=== PATIENT | male | born 1960 ===

== ENCOUNTER → 2017-10-25 | Outpatient (CLI) | payer OTHER, BC ==
[~2017-10-25] MED LIST: CYCL-277 PO; IBUP800T37 PO
--- NOTE | 2017-10-25 10:22 | RADIOLOGY IMAGING REPORT ---
FACILITY: [facility] - [place] PATIENT NAME: James Yanes : 1960 MR: [id number] V: [id number] EXAM DATE: ORDERING PHYSICIAN: CHARY BAILEY TECHNOLOGIST: Location: [facility] [place] Patient: James Yanes : 1960 Visit/Account:[id number] Date of Sevice: 10/25/2017 Study: ORBITS FOREIGN BODY 1 VIEW Indication: MRI screening Comparison study: None Findings: A single view of the orbits demonstrates no evidence of metallic foreign body. No significant bony abnormality is identified. IMPRESSION: No evidence of metallic foreign body overlying the orbits. Report Dictated By: Alonso Mathur at 10/25/2017 10:17 AM Report E-Signed By: Alonso Mathur at 10/25/2017 10:18 AM WSN:[id number]
--- NOTE | 2017-10-25 12:02 | RADIOLOGY IMAGING REPORT ---
[place] [facility] [place]: James Yanes : 1960 MR: [id number] V: [id number] EXAM DATE: ORDERING PHYSICIAN: CHARY BAILEY TECHNOLOGIST: Location: [facility] Patient: James Yanes : 1960 Visit/Account:[id number] Date of Sevice: 10/25/2017 L SPINE W/O CONTRAST EXAMINATION: Lumbar spine MRI without IV contrast Additional Pertinent history: Left leg pain COMPARISON STUDIES: none TECHNIQUE: Multi-planar, multi-sequence lumbar spine MRI was performed without intravenous contrast administration. FINDINGS: Alignment: negative Vertebral marrow signal: negative Distal thoracic cord: negative Conus: negative, terminates at T12 Cauda equina: negative Paravertebral soft tissues: negative Visualized abdominal and pelvic structures: negative Disc Spaces: Lower T spine: negative L1-2: negative L2-3: Mild facet DJD changes. L3-4: Small central disc bulging change. In conjunction with facet hypertrophy and thickening of liga mentum flavum this is resulting in a mild central stenosis. The transiting and exiting nerve roots we ll maintained L4-5: Central disc bulging change mild to moderate degree within minimal annular tear. In conjunction with facet hypertrophy and thickening of ligament flavum is resulting in a mild to moderate spinal s tenosis centrally. The very far lateralizing disc osteophyte complexes resulting in moderate impinge ment upon the very far lateral exiting right L IV nerve root (axial image 18/25 T2) L5-S1: Moderate central and left lateralizing disc bulging change with left lateral disc extrusion re sulting in moderately severe impingement of the transiting left S1 nerve root (axial image 24) exitin g nerve roots well maintained IMPRESSION: 1. Disc degenerative changes in the lower 3 lumbar levels as described. There is a central and left L 5-S1 lateralizing disc bulge/extrusion resulting in moderate impingement of the transiting left S1 ne rve root. There is also a very far lateralizing disc disc bulge/osteophyte change on the right at the L4-5 level level resulting in mild/moderate impingement of the very far lateralizing exiting right L 4 nerve root. 2. Mild L3-4 and L 4-5 spinal stenotic changes. Report Dictated By: Eder Dai MD at 10/25/2017 11:47 AM Report E-Signed By: Eder Dai MD at 10/25/2017 11:57 AM WSN:[id number]
== END ==
LOC: MRI 08:07
PROVIDERS: ATTEND Nurse Practitioner Family
DX: M51.36 Other intervertebral disc degeneration, lumbar region (principal); M51.27 Other intervertebral disc displacement, lumbosacral region
CPT/HCPCS: 70030; 72148

== ENCOUNTER → 2017-11-26 | Outpatient (REF) ==
--- NOTE | 2017-11-27 10:24 | EKG ---
[place] [facility] [place] AYSHA PIERSON : [id number] MR: [id number] V: [id number] EXAM DATE: ORDERING PHYSICIAN: ELADIA RANDALL TECHNOLOGIST: ANALISA Mariee Reason : PREOP Blood Pressure : / mmHG Vent. Rate : 085 BPM Atrial Rate : 085 BPM P-R Int : 190 ms QRS Dur : 078 ms QT Int : 342 ms P-R-T Axes : 038 095 067 degrees QTc Int : 406 ms Normal sinus rhythm Rightward axis Nonspecific ST abnormality Abnormal ECG No previous ECGs available Confirmed by YAMIL BISHOP ([id number]) on 11/27/2017 11:31:07 AM Referred By: PRAKASH Confirmed By:YAMIL BISHOP
== END ==
LOC: RESP 15:42
PROVIDERS: ATTEND Nurse Practitioner
DX: Z01.810 Encounter for preprocedural cardiovascular examination (principal); R94.31 Abnormal electrocardiogram [ECG] [EKG]
CPT/HCPCS: 93005

== ENCOUNTER 2017-12-15 01:03 | Day surgery (SDC) | payer OTHER, BC ==
[2017-12-15] VITALS (7 sets, daily range): BP systolic 110–144; BP diastolic 68–91
[~2017-12-15] VITALS: Ht 190.5 cm; Wt 142.9 kg
[~2017-12-15 01:03] MED LIST changes: +ATOR40TA24 PO; +GLY5 PO; +LISI20TA29 PO; +LORA-629 PO; +METF-410 PO; +SITA100T PO
[2017-12-15] MEDS ORDERED: THROMBIN (BOVINE) 20,000 UNIT VIAL ONE (06:22)
[2017-12-15] MEDS ORDERED: fentaNYL CITR 250 MCG/5 ML AMP ONE (14:04)
[2017-12-15] MEDS ORDERED: PROPOFOL EMUL(*) 10MG/ML 20 ML 40 ML ONE (14:05)
[2017-12-15] MEDS ORDERED: ONDANSETRON 4 MG/2 ML VIAL ONE (14:05)
[2017-12-15] MEDS ORDERED: DEXAMETHASONE SOD PHOS 10MG/ML ONE ×2 (14:05→16:56)
[2017-12-15] MEDS ORDERED: LIDOCAINE MPF 1% 5 ML VIAL ONE (14:05)
[2017-12-15] MEDS ORDERED: SUGAMMADEX SOD 500 MG/5 ML SDV ONE (14:10)
[2017-12-15] MEDS ORDERED: BUPIVACAIN 0.25% INJ 50ML VIAL ONE (14:26)
[2017-12-15] MEDS ORDERED: fentaNYL CITR 100 MCG/2 ML AMP ONE ×3 (16:27→18:45)
[2017-12-15] MEDS ORDERED: LABETALOL HCL 100 MG/20ML VIAL ONE (16:30)
[2017-12-15] MEDS ORDERED: ROCURONIUM BROM 10 MG/ML 10 ML ONE (16:30)
[2017-12-15] MEDS ORDERED: KETAMINE HCL 200 MG/20 ML MDV ONE (16:30)
[2017-12-15] MEDS ORDERED: NORMOSOL R SOLN(*) 1000 ML BAG 1,000 ML IV PRN (16:35)
[2017-12-15] MEDS ORDERED: MIDAZOLAM 2 MG/2 ML VIAL IVP PRN (16:35)
[2017-12-15] MEDS ORDERED: LIDOCAINE/SOD BICARB 8.4% SYR ID ONE (16:35)
[2017-12-15] MEDS ORDERED: FAMOTIDINE 20 MG TAB PO ONE (16:35)
[2017-12-15] MEDS ORDERED: ceFAZolin(*) 1 GM VIAL 3 GM in NS(*) 0.9% 100 ML BAG 100 ML IVPB ONE (16:35)
[2017-12-15] MEDS ORDERED: OXYC-373 PO (18:13)
[2017-12-15] MEDS ORDERED: DOCU240C84 PO (18:14)
[2017-12-15] MEDS ORDERED: DIA5 PO (18:15)
[2017-12-15] MEDS ORDERED: KETOROLAC 30 MG/ML VIAL ONE (18:19)
--- NOTE | 2017-12-15 18:57 | OPERATIVE REPORT 1 ---
EVENT DATE: December 15, 2017 SURGEON: Laron Salvador MD ANESTHESIOLOGIST: Christiano Jaramillo MD ANESTHESIA: General endotracheal anesthesia. VEHICLE DYNAMICS ENGINEER: Dakota Luis MD PREOPERATIVE DIAGNOSIS Left S1 radiculopathy with L5-S1 herniated nucleus pulposus. POSTOPERATIVE DIAGNOSIS Left S1 radiculopathy with L5-S1 herniated nucleus pulposus. PROCEDURE PERFORMED L5-S1 microdiscectomy. INTRAVENOUS FLUIDS 800 mL ESTIMATED BLOOD LOSS 25 mL IMPLANTS None. SPECIMENS None. DRAINS None. COMPLICATIONS None. DISPOSITION Post-anesthesia care unit. INDICATIONS FOR SURGERY Mr. Yanes is a 57-year-old gentleman who presented to my clinic with the chief complaint of radiating left lower extremity pain, numbness, and tingling down the posterior buttock, posterior thigh, posterior calf, and into the foot. He had failed physical therapy, medications, and other nonsurgical treatment. Physical examination revealed a positive straight leg raising maneuver on the left reproducing symptoms in the S1 distribution. He had slightly decreased strength in the peroneals, but otherwise a normal exam. His MRI showed disk desiccation at multiple levels and a left-sided paracentral L5-S1 disk herniation, contacting and posteriorly displacing the S1 nerve root. Secondary to ongoing symptoms and no improvement with nonsurgical care, Mr. Yanes was offered and elected to undergo L5-S1 microdiscectomy. CONSENT Prior to surgery, I explained in detail to the patient the possible risks of surgery. This included the risks of persistent and/or worsening pain, infection and/or meningitis, bleeding, damage to the surrounding structures, nerve root injury, spinal fluid leak, and medical and surgical complications including , blindness, sexual dysfunction, autonomic nervous system dysfunction, etc. He voiced an understanding and wished to proceed. DESCRIPTION OF PROCEDURE On the date of surgery, the patient was met in the preoperative hold area, and all questions were answered. The operative site was identified and marked by myself. The patient was taken in good condition to the operating room, and after succumbing to anesthesia, he was placed in the prone position on a Noah table. Care was taken to pad all bony protuberances and soft tissues. Appropriate perfusion pressures were maintained throughout anesthesia. Preoperative antibiotics were administered according to the appropriate timing schedule. At the conclusion of the procedure, the sponge and needle counts were correct times two. The skin was prepped with a single DuraPrep, and spinal needle was placed on the spinous process of L5. A lateral radiograph was taken to confirm appropriate positioning. The patient was then prepped and draped in the standard sterile orthopedic fashion, and a final timeout was undertaken to confirm correct patient, correct levels, and correct surgery. An incision was then made over the intended spinal levels and over the spinous process of L5. Sharp dissection was taken down to the spinous process, and the fascia was then incised with an electrocautery device. A Hernández elevator was used subperiosteally to elevate the soft tissues off of the laminae of L5 and S1. A Xiomy retractor was then placed to provide visualization of the L5-S1 interlaminar space. Soft tissues were removed from the ligamentum flavum, and then a curved curette was used to undermine the insertion of the ligamentum flavum to the superior aspect of S1. The canal was entered in this fashion, and a [place] elevator was used to release any dural adhesions from surrounding bone and soft tissue. A 3.0 Kerrison punch was used to remove minimal bone and widen out a foraminotomy through which to address the disk. The shoulder of the traversing S1 nerve root was identified and mobilized with the use of a [place] #4 and a [place] [address] elevator. A Love nerve root retractor was used to retract the root medially. A large, contained disk herniation was found, and the capsule was incised with the 15 blade. Multiple fragments of disk were removed from beneath that capsule, lending significant freedom to the traversing nerve root. A Crook probe was then used to check for the canal, sweeping and searching for further disk fragments. All loose disk fragments were removed. The floor of the canal was then irrigated with copious sterile saline solution to wash away chemical irritants and free up any other disk fragments. Once I was satisfied that the nerve root was fully decompressed, the wound was once again irrigated, and then 2 mg of Decadron were infused around the S1 nerve root. The wound was then closed in layers using interrupted sutures for the deep fascia, inverted interrupted sutures for the subcutaneous tissue, and then a running subcuticular skin stitch. Sponge and needle counts were correct times two. POSTOPERATIVE CARE PLAN The patient will remain in the postop area until he meets discharge criteria and then will be returned home with instructions to follow up in two weeks' time for wound check and examination. CONSTANTINO
--- NOTE | 2017-12-15 20:11 | RADIOLOGY IMAGING REPORT ---
FACILITY: [facility] PATIENT NAME: James Yanes : 1960 MR: [id number] V: [id number] EXAM DATE: ORDERING PHYSICIAN: NAYELY ESTEBAN TECHNOLOGIST: Location: [facility] Patient: James Yanes : 1960 Visit/Account:[id number] Date of Sevice: 12/15/2017 Technique: LUMBAR SPINE 1 VIEW HISTORY: L5-S1 DISC HERNIATION Comparison studies: Lumbar spine radiographs September 13, 2017, MRI lumbar spine October 25, 2017 FINDINGS: Single lateral radiograph is obtained of the lower lumbar spine. Surgical instrumentation i s seen posterior to the L4 and L5 vertebral body. Degenerative changes are again noted including inte rvertebral disc space narrowing at L4-L5. IMPRESSION: 1. Limited lumbar spine radiograph as described above. Report Dictated By: Brenton Tarango DO at 12/15/2017 8:05 PM Report E-Signed By: Brenton Tarango DO at 12/15/2017 8:07 PM WSN:[id number]
== END 2017-12-15 18:56 | disposition home or self-care (01) ==
LOC: OR 01:03
PROVIDERS: ATTEND Orthopaedic Surgery
DX: M51.17 Intervertebral disc disorders with radiculopathy, lumbosacral region (principal); E11.9 Type 2 diabetes mellitus without complications
CPT/HCPCS: 36416; 63030; 72020; 82948; J0690; J1100; J1885; J2001; J2250; J2405; J2704; J3010; J3490; J7050